=== PATIENT | male | born 1940 | race Caucasian/White ===

== ENCOUNTER 2024-02-19 03:34 | Inpatient (IN) | payer MEDICARE, OTHER ==
[~2024-02-19] VITALS: Ht 167.6 cm; Wt 72.6 kg
[2024-02-19 04:26] LABS: BASOPHILS % (AUTO) 0.6 % (0.0-2.0); EOSINOPHILS # (AUTO) 0.2 K/uL (0.0-0.7); EOSINOPHILS % (AUTO) 2.4 % (0.0-6.0); HEMATOCRIT 42 % (39-51); HEMOGLOBIN 14.2 g/dL (13.5-17.5); LYMPHOCYTES # (AUTO) 1.3 K/uL (0.8-4.8); LYMPHOCYTES % (AUTO) 15.3 % (20.0-44.0); MEAN CORPUSCULAR HEMOGLOBIN 30 PG (26.0-33.0); MEAN CORPUSCULAR HGB CONC 34 g/dl (31.0-36.0); MEAN CORPUSCULAR VOLUME 90 fL (80-96); MONOCYTES # (AUTO) 0.7 K/uL (0.1-1.30); NEUTROPHILS # (AUTO) 6.4 K/uL (1.8-8.9); NEUTROPHILS % (AUTO) 73.7 % (43.0-81.0); PLATELET COUNT (AUTO) 185 K/uL (150-450); RED BLOOD CELL COUNT(AUTO) 4.67 MIL/uL (4.5-6.0); WHITE BLOOD COUNT (AUTO) 8.7 K/uL (4.3-11.0)
[2024-02-19 04:43] LABS: CARBON DIOXIDE 30 mmol/L (21-32); CHLORIDE 109 mmol/L (98-107); CREATININE 0.9 mg/dL (0.6-1.3); GLUCOSE 99 mg/dL (74-106); POTASSIUM 4.3 mmol/L (3.5-5.1); SODIUM SERUM 146 mmol/L (136-145); UREA NITROGEN, BLOOD 26 mg/dL (7-18)
[2024-02-19 04:56] LABS: ALANINE AMINOTRANSFERASE 18 U/L (12-78); ALBUMIN 3.7 g/dL (3.4-5.0); ALCOHOL, BLOOD < 3 mg/dL (0-10); ALKALINE PHOSPHATASE 96 U/L (46-116); ASPARTATE AMINOTRANSFERASE 17 U/L (15-37); BILIRUBIN,TOTAL 0.6 mg/dL (0.2-1.0); NT-PRO BNP 205 pg/mL (0-125); TOTAL PROTEIN, SERUM 7.1 g/dL (6.4-8.2)
[2024-02-19 05:07] LABS: SERUM AMMONIA 9 umol/L (11-32)
[2024-02-19 05:12] LABS: APPEARANCE,URINE CLEAR (CLEAR); BILIRUBIN,URINE NEGATIVE (NEGATIVE); BLOOD, URINE TRACE-INTA Ery/uL (NEGATIVE); COLOR,URINE YELLOW (YELLOW); KETONES,URINE NEGATIVE (NEGATIVE); LEUKOCYTE ESTERASE ,URINE TRACE (NEGATIVE); NITRITE, URINE NEGATIVE (NEGATIVE); PROTEIN,URINE 1+ mg/dl (NEGATIVE); UGLUCOSE NEGATIVE (NEGATIVE); UROBILINOGEN,URINE 0.2 EU/dL (0.2)
[2024-02-19 05:21] LABS: ADD URINE CULTURE YES; BACTERIA,URINE Rare /HPF (None Seen); SQUAMOUS EPITHELIAL CELL,UR Few /HPF (None Seen)
[2024-02-19 05:24] LABS: AMPHETAMINE, URINE NEGATIVE (NEGATIVE); BARBITURATE, URINE NEGATIVE (NEGATIVE); BENZODIAZEPINE, URINE NEGATIVE (NEGATIVE); CANNABINOID, URINE NEGATIVE (NEGATIVE); COCCAINE, URINE NEGATIVE (NEGATIVE); OPIATE, URINE NEGATIVE (NEGATIVE); PHENCYCLIDINE SCREEN,URINE NEGATIVE (NEGATIVE)
[2024-02-19] MEDS: IV NS 0.9% 1,000 ML IV ONE (06:00)
[2024-02-19] MEDS ORDERED: MAGNESIUM HYDROXIDE 30 ML UDC PO PRN (06:00)
[2024-02-19] MEDS ORDERED: ZOLPIDEM TARTRATE 5 MG TABLET PO PRN (06:00)
[2024-02-19] MEDS ORDERED: IV 1/2NS 1000 ML 1,000 ML IV PRN (06:00)
[2024-02-19] MEDS ORDERED: Z GUARD REMEDY 4 OZ OINT TP PRN (06:00)
[2024-02-19] MEDS ORDERED: MAG HYDROX/AL HYDROX/SIMETH 30 ML UDC PO PRN (06:00)
[2024-02-19] MEDS ORDERED: ACETAMINOPHEN 325 MG TABLET PO PRN (06:00)
[2024-02-19 06:41] LABS: ALBUMIN 3.8 g/dL (3.4-5.0); BILIRUBIN,DIRECT 0.1 mg/dL (0.0-0.2); BILIRUBIN,TOTAL 0.6 mg/dL (0.2-1.0); TOTAL PROTEIN, SERUM 7.2 g/dL (6.4-8.2)
[2024-02-19 06:55] LABS: THYROID STIMULATING HORMONE 2.38 uIU/mL (0.358-3.74)
[2024-02-19 11:00] VITALS: BP 151/79; TEMP 97.8; O2SAT 98
== END 2024-02-19 17:13 | disposition home or self-care (01) | DRG 640 ==
LOC: EDBD 03:46 → ER 03:46 → MED 09:08
PROVIDERS: ADMIT Nurse Practitioner Family; ATTEND Nurse Practitioner Family
DX: E86.0 Dehydration (principal); G93.41 Metabolic encephalopathy; F03.918 Unspecified dementia, unspecified severity, with other behavioral disturbance; Z91.83 Wandering in diseases classified elsewhere; E78.5 Hyperlipidemia, unspecified; I10 Essential (primary) hypertension; E87.0 Hyperosmolality and hypernatremia
CPT/HCPCS: 36415; 70450-TC; 71045-TC; 80053-TC; 80076-TC; 81001; 82140-TC; 83880; 84443-TC; 84484-TC; 85025-TC; 87086-TC; G0378; G0480